=== PATIENT | female | born 1995 | race Caucasian/White ===

== ENCOUNTER 2020-05-30 12:43 | Emergency (ER) | payer MEDICAID ==
[~2020-05-30] VITALS: Ht 152.4 cm; Wt 62.6 kg
[2020-05-30 12:52] VITALS: BP 110/67
--- NOTE | 2020-05-30 12:56 | NUR ---
PT AMBULATED TO BATHROOM, STEADY GAIT.
--- NOTE | 2020-05-30 13:11 | NUR ---
Dr. Gunderson is evaluating the patient at bedside.
--- NOTE | 2020-05-30 13:12 | NUR ---
ERMD AT BEDSIDE, NO NURSING INTERVENTIONS REQUIRED.
[2020-05-30 13:21] VITALS: BP 108/62
--- NOTE | 2020-05-30 13:21 | NUR ---
Patient discharged with v/s stable. Written and verbal after care instructions given and explained. Patient verbalized understanding. Ambulatory with steady gait. All questions addressed prior to discharge. Advised to follow up with PMD.
== END 2020-05-30 13:21 | disposition home or self-care (01) ==
LOC: MED 12:43
DX: S29.012A Strain of muscle and tendon of back wall of thorax, initial encounter (principal); S39.012A Strain of muscle, fascia and tendon of lower back, initial encounter; V89.2XXA Person injured in unspecified motor-vehicle accident, traffic, initial encounter; Y93.89 Activity, other specified; Y92.89 Other specified places as the place of occurrence of the external cause; Y99.8 Other external cause status
CPT/HCPCS: 99281